=== PATIENT | male | born 1955 | race Caucasian/White ===

== ENCOUNTER 2022-05-06 05:28 | Outpatient (CLI) | payer MEDICARE, MEDICAID ==
[~2022-05-06] VITALS: Ht 170.2 cm; Wt 127.3 kg
[2022-05-06] MEDS ORDERED: LOSA1TAB20 PO (13:03)
== END 2022-05-06 13:14 | disposition home or self-care (01) ==
LOC: PREOP 05:28
PROVIDERS: ATTEND Otolaryngology Otolaryngology/Facial Plastic Surgery
DX: Z01.818 Encounter for other preprocedural examination (principal)

== ENCOUNTER 2022-05-14 06:47 | Day surgery (SDC) | payer MEDICARE, MEDICAID ==
[2022-05-14] VITALS (13 sets, daily range): BP systolic 112–176; BP diastolic 63–101
[~2022-05-14] VITALS: Ht 170.2 cm; Wt 127.3 kg
[~2022-05-14 06:47] MED LIST: LOSA1TAB20 PO
[2022-05-14] MEDS ORDERED: LACTATED RINGERS 1,000 ML IV PRN (07:00)
[2022-05-14] MEDS ORDERED: ceFAZolin INJECTION 1,000 MG in NS (IVPB) 50 ML IV ONE (07:00)
--- NOTE | 2022-05-14 07:02 | Progress Note-Pre Operative ---
Pre-Operative Progress Note Date of Available H&P: May 14, 2022 Date H&P Reviewed: May 14, 2022 Time H&P Reviewed: 07:30 History & Physical: H&P Reviewed, Patient Examed, No changes noted Changes from last HP none Pre-Operative Diagnosis: Deviated Nasal Septum, Bilat Hyper of Inf Turbs SUZI VENTURA MD May 14, 2022 07:02
--- NOTE | 2022-05-14 07:03 | Progress Note-Post Operative ---
Post-Operative Progess Note Surgeon (s)/Construction Equipment Operator (s) Surgeon SUZI VENTURA MD Construction Equipment Operator n/a Pre-Operative Diagnosis Deviated Nasal Septum, Bilat Hyper of Inf Turbs Post-Operative Diagnosis same Post-Op Procedure Note Date of Procedure: May 14, 2022 Name of Procedure Performed: Nasal Septoplasty, Bilat PArtial REduction of INf Turbs Description & Findings Description and Findings: n/a Anesthesia Type get Estimated Blood Loss minimal Packing none. Specimen(s) collected/removed nasal septum SUZI VENTURA MD May 14, 2022 07:03
[2022-05-14] MEDS ORDERED: D5 1/2 NS W/KCL 20 MEQ/L 1,000 ML IV SCH (07:15)
[2022-05-14] MEDS ORDERED: PROMETHAZINE INJ 25 MG/ML (PHENERGAN) AMP IVP PRN (07:15)
[2022-05-14] MEDS ORDERED: MUPIROCIN 2% OINT 22 GM (BACTROBAN) TUBE ONE (07:48)
[2022-05-14] MEDS ORDERED: BSS 15 ML ONE (07:48)
[2022-05-14] MEDS ORDERED: PHENYLEPHRINE 0.5% NASAL SPR (NEO-SYNEPHRINE) REG ONE (07:48)
[2022-05-14] MEDS ORDERED: COCAINE HCL 4% 2 ML SYR ONE (07:48)
[2022-05-14] MEDS ORDERED: LIDOCAINE/EPI 1%-1:100,000 (XYLOCAINE) 30ML ONE (07:48)
[2022-05-14 07:55] LABS: BASOPHILS # (AUTO) 0.1 10^3/uL (0.0-0.1); BASOPHILS % (AUTO) 1 % (0-10); EOSINOPHILS # (AUTO) 0.1 10^3/uL (0.0-0.3); EOSINOPHILS % (AUTO) 1 % (0-10); HEMATOCRIT 46 % (40-54); LYMPHOCYTES # (AUTO) 1.5 10^3/uL (1.0-4.0); LYMPHOCYTES % (AUTO) 17 % (12-44); MEAN CORPUSCULAR HEMOGLOBIN 28 pg (25-34); MEAN CORPUSCULAR HGB CONC 33 g/dL (32-36); MEAN CORPUSCULAR VOLUME 86 fL (80-99); MEAN PLATELET VOLUME 9.6 fL (9.0-12.2); MONOCYTES # (AUTO) 0.8 10^3/uL (0.0-1.0); MONOCYTES % (AUTO) 8 % (0-12); NEUTROPHILS # (AUTO) 6.7 10^3/uL (1.8-7.8); NEUTROPHILS % (AUTO) 73 % (42-75); PLATELET COUNT 250 10^3/uL (130-400); WHITE BLOOD COUNT 9.2 10^3/uL (4.3-11.0)
[2022-05-14 08:12] LABS: CALCIUM 9.4 MG/DL (8.5-10.1); CREATININE SERUM 1.13 MG/DL (0.60-1.30); POTASSIUM 4.1 MMOL/L (3.6-5.0)
[2022-05-14] MEDS ORDERED: fentaNYL INJ 100 MCG/2 ML AMP ONE (08:21)
[2022-05-14] MEDS ORDERED: ROCURONIUM 50 MG/5 ML (ZEMURON) VIAL IV ONE (08:21)
[2022-05-14] MEDS ORDERED: proPOfol 200 MG/20 ML (DIPRIVAN) VIAL IV ONE (08:21)
[2022-05-14] MEDS ORDERED: ONDANSETRON 4 MG/2 ML (SDV) Z0FRAN ONE (08:21)
[2022-05-14] MEDS ORDERED: GLYCOPYRROLATE 0.2 MG/ML (ROBINUL) 2 ML VIAL ONE (08:21)
[2022-05-14] MEDS ORDERED: NEOSTIGMINE (BLOXIVERZ ) 1 MG/1ML 10 ML VIAL ONE (08:21)
[2022-05-14] MEDS ORDERED: LIDOCAINE PF 2% 5 ML (XYLOCAINE) VIAL ONE (08:21)
[2022-05-14] MEDS ORDERED: PHENYLEPHRINE 100 MCG/ML 10 ML (ANESTHESIA) SYR ONE (08:55)
[2022-05-14] MEDS ORDERED: SEVOFLURANE (ULTANE) 15 ML INHAL SOLN ONE (09:38)
[2022-05-14] MEDS ORDERED: ACHD5005 PO (09:46)
[2022-05-14] MEDS ORDERED: AMOX-355 PO (09:46)
[2022-05-14] MEDS ORDERED: HYDROmorphone 2 MG/ML VIAL (DILAUDID) IV ONE (10:00)
[2022-05-14] MEDS ORDERED: morphine INJ 10 MG/ML 1ML (SYR OR VIAL) IVP ONE (10:00)
[2022-05-14] MEDS ORDERED: ONDANSETRON 4 MG/2 ML (SDV) Z0FRAN IVP PRN (10:00)
--- NOTE | 2022-05-14 10:58 | Anesthesia-General Post-Op ---
General Patient Condition Mental Status/LOC: Same as Preop Cardiovascular: Satisfactory Nausea/Vomiting: Absent Respiratory: Satisfactory Pain: Controlled Complications: Absent Post Op Complications Complications None Follow Up Care/Instructions Patient Instructions None needed. Anesthesia/Patient Condition Patient Condition Patient is doing well, no complaints, stable vital signs, no apparent adverse anesthesia problems. No complications reported per nursing. FRANCISCO GRAHAM DO May 14, 2022 10:58
[2022-05-14] MEDS: HYDROcodone/APAP 5 MG/325 MG (LORTAB) TAB PO PRN ×3 (11:20→20:13)
[2022-05-14] MEDS ORDERED: RT-ALBUTEROL SULF 2.5 MG/3 ML PRE-MIX VIAL INH ONE (12:45)
[2022-05-14] MEDS ORDERED: RT-ALBUTEROL SULF 2.5 MG/3 ML PRE-MIX VIAL ONE (12:45)
--- NOTE | 2022-05-14 14:07 | Anesthesia-General Post-Op ---
General Patient Condition Mental Status/LOC: Same as Preop Cardiovascular: Satisfactory Nausea/Vomiting: Absent Respiratory: Unsatisfactory Pain: Controlled Complications: Absent Post Op Complications Complications None Follow Up Care/Instructions Patient Instructions None needed. Anesthesia/Patient Condition Patient Condition Patient was seen earlier when he returned to [facility] and he was doing well. He currently desaturates on room air when not encouraged to take deep breaths. A breathing treatment was ordered and administered without any change. I spoke with Dr Jones and relayed his current status. He prefers the patient stays in observation status tonight, with oxygen titrated to keep O2 sats greater than 90%. He said he will see the patient first thing in the morning. FRANCISCO GRAHAM DO May 14, 2022 14:07
[2022-05-14] MEDS: AUGMENTIN 875 MG TAB (AMOXICILLIN/CLAVULANATE) PO SCH (17:19)
[2022-05-14] MEDS ORDERED: RT-ALBUTEROL SULF 2.5 MG/3 ML PRE-MIX VIAL INH PRN (19:30)
[2022-05-15] MEDS: HYDROcodone/APAP 5 MG/325 MG (LORTAB) TAB PO PRN ×3 (00:16→11:01)
[2022-05-15 03:10] VITALS: BP 116/74
--- NOTE | 2022-05-15 06:45 | Progress Note ---
Standard Progress Note Progress Notes/Assess & Plan Date Seen by a Provider: May 15, 2022 Time Seen by a Provider: 06:00 Progress/Assessment & Plan ENT-Karen Patient admitted for observation yesterday because of persistent decreased oxygen saturations expecially while sleeping. Has long standing patrick. He has been CPAP intolerant in the past. No smoking history and no significant work exposures. currently is requiring 4 l to maitain his sats while sleeping. surgerywise he is doing well-minimal bleeding-nose is congested which is expected taking pain medication as needed sergio diet Exam: Nose-minimal bloody drainge-it is congested-no external swelling IMP: Hypoxemia-mainly nocturnal Re: 1. will need to arrange for home oxygen-to use especially when sleeping; once recovered from surgery will need pulm work-up and probably another sleep tsudy. If he is still cpap intolerant then potentially would beome a candidatae for an inspire implant 2. willl dicharge once arragements made for home oxygen 3. patient already has return apt and home prescriptions along with irrigation instructions Final Diagnosis s/p nasal septoplasty hypoxemia SUZI VENTURA MD May 15, 2022 06:45
[2022-05-15 07:57] VITALS: BP 130/56
[2022-05-15] MEDS: AUGMENTIN 875 MG TAB (AMOXICILLIN/CLAVULANATE) PO SCH (08:05)
[2022-05-15 08:10] VITALS: BP 123/61
[2022-05-15] MEDS ORDERED: LOSARTAN 25 MG (COZAAR) TAB PO SCH (09:00)
[2022-05-15] MEDS ORDERED: HydroCHLOROthiazide CAP/TABLET 12.5 MG TAB PO SCH (09:00)
[2022-05-15] MEDS ORDERED: NON-FORMULARY MEDICATION 1 EA EA (Losartan/Hydrochlorothiazide (Losartan-Hctz 50-12.5 mg T PO SCH (09:00)
[2022-05-15 11:00] VITALS: BP 123/61
== END 2022-05-15 11:00 | disposition home or self-care (01) ==
LOC: SDC 06:47 → 4TH 14:45 → SDC 05-15 11:00
PROVIDERS: ATTEND Otolaryngology Otolaryngology/Facial Plastic Surgery
DX: J34.3 Hypertrophy of nasal turbinates (principal); J34.2 Deviated nasal septum; G47.33 Obstructive sleep apnea (adult) (pediatric); R09.02 Hypoxemia; E66.01 Morbid (severe) obesity due to excess calories; Z68.41 Body mass index [BMI] 40.0-44.9, adult
CPT/HCPCS: 36415; 80048; 85025; 87081; 93005; 94640